=== PATIENT | female | born 1995 | race Caucasian/White ===

== ENCOUNTER 2016-10-23 17:38 | Emergency (ER) | payer SELFPAY ==
[2016-10-23 18:13] VITALS: BMI 28.3
[2016-10-23 18:29] LABS: AUTOMATED BASOPHIL 0.4 % (0-2); AUTOMATED EOSINOPHIL 0.4 % (0-5); AUTOMATED LYMPH 29.6 % (17-44); AUTOMATED MONOCYTE 6.2 % (3-10); AUTOMATED NEUTROPHIL 63.4 % (45-76); MPV 8.6 fL (7.4-10.4)
[2016-10-23 18:34] LABS: LEUKOCYTES/URINE NEG (NEGATIVE); NITRITE/URINE NEG (NEGATIVE); RBC/URINE 0-2 (0-5); URINE OCCULT BLOOD NEG (NEG/TRACE); WBC/URINE 0-2 (0-5)
[2016-10-23 18:40] LABS: BLOOD UREA NITROGEN 16 MG/DL (7-17); CALCIUM 9.9 MG/DL (8.4-10.2); CALCULATED OSMOLALITY 274 MOs/Kg (270-290); CHLORIDE 103 mEq/L (98-107); GLUCOSE 102 MG/DL (70-99); SODIUM LEVEL 142 mEq/L (137-146); TOTAL PROTEIN 8.5 G/DL (6.3-8.2)
[2016-10-23] MEDS ORDERED: MORPHINE 4 MG/ML INJECTION IV ONE (19:03)
[2016-10-23] MEDS ORDERED: NS 1,000 ML IV ONE (19:03)
[2016-10-23] MEDS ORDERED: ONDANSETRON HCL 4 MG/2 ML VIAL IV ONE (19:03)
--- NOTE | 2016-10-23 19:12 | EDPRACDOC ---
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 STATES THE PAIN IS WORSE TODAY. PT STATES SHE HAS NAUSEA. DENIES VOMITING OR DIARRHEA. Pain Location: Reports: RLQ, Periumbilical Pain Context: Reports: Spontaneous Pain Severity: Mild Pain Quality: Reports: Sharp, Stabbing Pain Radiation: Reports: No Radiation Last Menstrual Period: 1 week : No Adult Abdominal History: Denies: Abdominal Surgery, Urolithiasis, Bowel Obstruction, Similar Pain (dx) Female Abdominal History: Denies: Abdominal Surgery, UTI, Ectopic, PID, Urolithiasis, Similar Pain (dx) Modifying Factors: improves with: Nothing Female Associated Signs & Symptoms: Reports: Nausea Oral Intake: Decreased Urinary Output: Normal ED Past Medical History - History Reviewed Yes Nurses notes reviewed and agree except as marked - Patient Medical History Psychological History: Denies: Depression - Social Medical History Smoking Status: Never smoker EDM Review of Systems - Review of Systems ROS Negative Except as Marked: Yes All systems reviewed and were negative except as marked - Physical Exam Constitutional: Alert Oriented to: Time, Person, Place Last recorded Vital Signs: Last Vital Signs Temp 98.6 F 10/23/16 18:10 Pulse 84 10/23/16 18:10 Resp 20 10/23/16 18:10 BP 135/67 10/23/16 18:10 Pulse Ox 98 10/23/16 18:10 Oxygen Pulse Oxygen Saturation 98 O2 Device Room Air Oxygen Flow Rate Fraction of Inspired Oxygen ( FIO2) - HEENT Head: Normal ( normocephalic) Eye Exam: Normal (PERRL, EOMI, Sclera white) Oropharynx: Normal (Pharynx:Moist without exudate,Gums-no swelling) TMJ: Normal Nose: No Symptoms Reported (septum midline) Neck: Normal (FROM, trachea at midline) - Respiratory/Cardiovascular Respiratory: Normal - CTA (BBS clear to auscultation without adventitious sounds ) Cardiovascular: Normal (RRR without murmur, gallop or rub) - GI Auscultation: Normal (NABS) Palpation: Normal (Soft,No rebound or guarding, non distended) Tenderness: Mild, RLQ, Periumbilical Mendes's Sign: Negative Rectal Exam: Deferred - Musculoskeletal Back: Normal (Non-Tender) Extremities: Normal (Normal tone, Pulses 2+ No cyanosis or edema, FROM) - Integumentary Skin: Normal, Warm, Dry Lymphatics: Normal (no adenopathy) - Neurologic Memory Impaired: Normal Motor Function: Normal (Normal tone, Pulses 2+ No cyanosis or edema, FROM) Cranial Nerve: Normal (CN II-X11 intact sensation, strength 5/5) Cerebellar: Normal Mood Description: Normal Perception: Normal - Differential Diagnosis Appendicitis, Constipation, UTI - Results All Results Reviewed and Normal except as Highlighted below: Yes 10/23/16 18:20 10/23/16 18:20 WBC 7.1 xk/uL (3.8-10.8) 10/23/16 18:20 RBC 4.09 xM/uL (4.20-5.40) L 10/23/16 18:20 Hgb 12.5 g/dL (12.0-16.0) 10/23/16 18:20 Hct 36.8 % (36-47) 10/23/16 18:20 MCV 90 fL (81-99) 10/23/16 18:20 MCH 30.5 pg (27-32) 10/23/16 18:20 MCHC 33.8 g/dl (33-36) 10/23/16 18:20 RDW 14.3 % (11.5-14.5) 10/23/16 18:20 Plt Count 275 xk/uL (130-400) 10/23/16 18:20 MPV 8.6 fL (7.4-10.4) 10/23/16 18:20 Neut % (Auto) 63.4 % (45-76) 10/23/16 18:20 Lymph % (Auto) 29.6 % (17-44) 10/23/16 18:20 [place] % (Auto) 6.2 % (3-10) 10/23/16 18:20 Eos % (Auto) 0.4 % (0-5) 10/23/16 18:20 Baso % (Auto) 0.4 % (0-2) 10/23/16 18:20 Absolute Neuts (auto) 4.47 xk/uL (1.7-8.2) 10/23/16 18:20 Absolute Lymphs (auto) 2.06 xk/uL (0.65-4.75) 10/23/16 18:20 Sodium 142 mEq/L (137-146) 10/23/16 18:20 Potassium 3.9 mEq/L (3.5-5.1) 10/23/16 18:20 Chloride 103 mEq/L (98-107) 10/23/16 18:20 Carbon Dioxide 27 mMOL/L (22-33) 10/23/16 18:20 Anion Gap 16 mEq/L (8-16) 10/23/16 18:20 BUN 16 MG/DL (7-17) 10/23/16 18:20 Creatinine 0.80 MG/DL (0.52-1.04) 10/23/16 18:20 Estimated GFR (MDRD) > 60 mL/min (>=60) 10/23/16 18:20 Glucose 102 MG/DL (70-99) H 10/23/16 18:20 Calculated Osmolality 274 MOs/Kg (270-290) 10/23/16 18:20 Calcium 9.9 MG/DL (8.4-10.2) 10/23/16 18:20 Total Bilirubin 0.5 MG/DL (0.2-1.3) 10/23/16 18:20 AST 49 IU/L (14-36) H 10/23/16 18:20 ALT 48 IU/L (9-52) 10/23/16 18:20 Alkaline Phosphatase 85 IU/L (38-126) 10/23/16 18:20 Total Protein 8.5 G/DL (6.3-8.2) H 01/06/17 18:20 Albumin 4.8 G/DL (3.5-5.0) 10/23/16 18:20 Lipase 91 U/L (23-300) 10/23/16 18:20 Urine Color Yellow 10/23/16 18:15 Urine Clarity Clear 10/23/16 18:15 Urine pH 6.0 (5.0-8.0) 10/23/16 18:15 Ur Specific [place] 1.015 (1.003-1.035) 10/23/16 18:15 Urine Protein Neg (NEG/TRACE) 10/23/16 18:15 Urine Glucose (UA) Neg (NEGATIVE) 10/23/16 18:15 Urine Ketones Neg (NEGATIVE) 10/23/16 18:15 Urine Occult Blood Neg (NEG/TRACE) 10/23/16 18:15 Urine Nitrite Neg (NEGATIVE) 10/23/16 18:15 Urine Bilirubin Neg (NEGATIVE) 10/23/16 18:15 Urine Urobilinogen <2.0 MG/DL (0-1) 10/23/16 18:15 Ur Leukocyte Esterase Neg (NEGATIVE) 10/23/16 18:15 Urine RBC 0-2 (0-5) 10/23/16 18:15 Urine WBC 0-2 (0-5) 10/23/16 18:15 Ur Epithelial Cells 1+ 10/23/16 18:15 Urine Bacteria Few (NEG/FEW) 10/23/16 18:15 Urine Test Neg (NEGATIVE) 10/23/16 18:15 Lab Results 10/23/16 10/23/16 10/23/16 18:20 18:20 18:20 WBC 7.1 RBC 4.09 L Hgb 12.5 Hct 36.8 MCV 90 MCH 30.5 MCHC 33.8 RDW 14.3 Plt Count 275 MPV 8.6 Neut % (Auto) 63.4 Lymph % (Auto) 29.6 [place] % (Auto) 6.2 Eos % (Auto) 0.4 Baso % (Auto) 0.4 Absolute Neuts (auto) 4.47 Absolute Lymphs (auto) 2.06 Sodium 142 Potassium 3.9 Chloride 103 Carbon Dioxide 27 Anion Gap 16 BUN 16 Creatinine 0.80 Estimated GFR (MDRD) > 60 Glucose 102 H Calculated Osmolality 274 Calcium 9.9 Total Bilirubin 0.5 AST 49 H ALT 48 Alkaline Phosphatase 85 Total Protein 8.5 H Albumin 4.8 Lipase 91 Urine Color Urine Clarity Urine pH Ur Specific [place] Urine Protein Urine Glucose (UA) Urine Ketones Urine Occult Blood Urine Nitrite Urine Bilirubin Urine Urobilinogen Ur Leukocyte Esterase Urine RBC Urine WBC Ur Epithelial Cells Urine Bacteria Urine Test 10/23/16 10/23/16 18:15 18:15 WBC RBC Hgb Hct MCV MCH MCHC RDW Plt Count MPV Neut % (Auto) Lymph % (Auto) [place] % (Auto) Eos % (Auto) Baso % (Auto) Absolute Neuts (auto) Absolute Lymphs (auto) Sodium Potassium Chloride Carbon Dioxide Anion Gap BUN Creatinine Estimated GFR (MDRD) Glucose Calculated Osmolality Calcium Total Bilirubin AST ALT Alkaline Phosphatase Total Protein Albumin Lipase Urine Color Yellow Urine Clarity Clear Urine pH 6.0 Ur Specific [place] 1.015 Urine Protein Neg Urine Glucose (UA) Neg Urine Ketones Neg Urine Occult Blood Neg Urine Nitrite Neg Urine Bilirubin Neg Urine Urobilinogen <2.0 Ur Leukocyte Esterase Neg Urine RBC 0-2 Urine WBC 0-2 Ur Epithelial Cells 1+ Urine Bacteria Few Urine Test Neg Decision Time to Discharge: 20:35 - Departure Disposition: Home Condition: Stable Final Diagnosis: Abdominal pain Instructions: Acute Abdominal Pain (ED) Education/Counseling Given To: Patient Education/Counseling Given Regarding: Diagnosis, Treatment, Prognosis, Follow Up Referrals: Chuck Gomez II, MD [Staff Physician] - One Week Prescriptions: Ondansetron [Zofran Odt] 4 mg PO Q6H PRN #20 tab.rapdis PRN Reason: Nausea/Vomiting Oxycodone Immediate Release [Oxycodone Immediate Release (OxyIR)] 5 mg PO Q6H PRN #20 tab PRN Reason: Pain Additional Instructions: Drink sips of Gatorade every 2-3 minutes while awake. Do NOT drink large volumes of fluid at once. If you vomit, take the nausea-vomiting medicine prescribed, wait ~ 30 minutes, and restart the sipping process. Return to the Emergency Department if you think you are getting dehydrated, have persistent abdominal pain that is unrelenting, have worse or different symptoms, or any concerns.
[2016-10-23] MEDS ORDERED: Pharmacy Review for Metformin - IV Contrast Given SCH (20:00)
--- NOTE | 2016-10-23 20:27 | DIRPT ---
CLINICAL DATA: Periumbilical pain EXAM: CT ABDOMEN AND PELVIS WITH CONTRAST TECHNIQUE: Multidetector CT imaging of the abdomen and pelvis was performed using the standard protocol following bolus administration of intravenous contrast. CONTRAST: 100 cc of Isovue 370 COMPARISON: 06/01/2012 FINDINGS: Lower chest: The lung bases are clear. No pleural or pericardial effusion noted. Hepatobiliary: There is mild hepatic steatosis identified. No focal liver abnormality identified. Pancreas: The gallbladder appears normal. No biliary dilatation. Spleen: The spleen is negative. Adrenals/Urinary Tract: Normal appearance of the adrenal glands. The right kidney is normal. The left kidney is also normal. The urinary bladder is within normal limits. Stomach/Bowel: The stomach appears normal. The small bowel loops have a normal course and caliber. No evidence for bowel obstruction. The appendix is not visualized separate from the right lower quadrant bowel loops. No secondary signs of acute appendicitis identified. Vascular/Lymphatic: Normal appearance of the abdominal aorta. No enlarged retroperitoneal or mesenteric adenopathy. No enlarged pelvic or inguinal lymph nodes. Reproductive: The uterus and adnexal structures appear normal. Other: No free fluid and no fluid collections identified within the abdomen or pelvis. Musculoskeletal: There is mild degenerative disc disease at the L5-S1 level. IMPRESSION: 1. No acute findings within the abdomen or pelvis. 2. Non visualization of the appendix. 3. Hepatic steatosis. Electronically Signed By: Lali Jackson M.D. On: 10/23/2016 20:24
[2016-10-23 21:33] VITALS: BP 139/78; PULSE 100; TEMP 97.7
== END 2016-10-23 21:31 | disposition home or self-care (01) ==
LOC: ED 17:38
DX: R10.33 Periumbilical pain (principal)
CPT/HCPCS: 36415; 74177; 80053; 81001; 81025; 83690; 85025; 96361; 96374; 96375; 99284; A9698; J2270; J2405